=== PATIENT | male | born 1995 | race Caucasian/White ===

== ENCOUNTER 2018-10-09 10:48 | Emergency (ER) | payer BC ==
[~2018-10-09] VITALS: Ht 185.4 cm; Wt 81.6 kg
[2018-10-09] MEDS ORDERED: LIDOCAINE HCL 1% 20 ML VIAL IJ ONE (11:15)
--- NOTE | 2018-10-09 11:38 | NUR ---
PT WAS EVALUATED BY DR BARR. PT WAS D/C'd TO HOME. D/C INSTRUCTIONS GIVEN TO THE PT.
[2018-10-09 11:39] VITALS: BP 126/75
== END 2018-10-09 11:40 | disposition home or self-care (01) ==
LOC: ER 10:50
DX: S51.011A Laceration without foreign body of right elbow, initial encounter (principal); Z88.0 Allergy status to penicillin; W26.8XXA Contact with other sharp object(s), not elsewhere classified, initial encounter; Y93.89 Activity, other specified; Y92.89 Other specified places as the place of occurrence of the external cause; Y99.8 Other external cause status
CPT/HCPCS: 12001; 99283; J3490; A4217; A4663